=== PATIENT | male | born 1985 | race Caucasian/White ===

== ENCOUNTER 2020-12-14 16:58 | Emergency (ER) | payer OTHER, SELFPAY ==
--- NOTE | 2020-12-14 17:14 | ED.BACK ---
HPI - Back Pain/Injury General Chief Complaint: Back Pain/Injury Stated Complaint: Middle back pain Source: patient and RN notes reviewed Limitations: no limitations History of Present Illness HPI Narrative: This is a 34-year-old male that presented to urgent care with complaints of mid to lower back pain. According to patient he was lifting something at work that was approximately 40 pounds when he injured his lower back pain to the left side residual of his back. Patient has full range of motion with pain, tenderness to his left side in mid back. Patient has sensation in all extremities , able to touch his toes , leg lift negative and equal strength bilateral in upper and lower extremities patient was instructed to follow-up primary care physician if the situation does not improve due to possible neurological damage. MD elicited complaint: back pain and back injury Related Data Home Medications Medication Instructions Recorded Confirmed sertraline 100 mg PO DAILY 12/14/20 12/14/20 Allergies Allergy/AdvReac Type Severity Reaction Status Date / Time metaxalone Allergy Severe anaphylaxis Verified 12/14/20 17:25 methocarbamol Allergy Severe anaphylaxis Verified 12/14/20 17:25 turkey Allergy Severe THROAT Verified 12/14/20 17:25 SWELLING Review of Systems Review of Systems: Narrative: A 14 organ system Review of Systems was performed and pertinent positives included in the HPI, otherwise remaining ROS is negative. [facility] Family History Family History Father Family history of malignant neoplasm Family history of emphysema Family history of heart disease in male family member before age 55 Sibling Patient's sister is in good health Patient's brother is in good health Family history of sudden infant syndrome Mother Family history of malignant neoplasm of breast in first degree relative Family history of lupus erythematosus Social History Social History Smoking status: Former smoker Smoking end date: 07/22/11 Alcohol intake: current Gender identity (if verbalized by the patient): Male Exam Narrative: Exam Narrative: GENERAL: This is a well-nourished, well-developed patient, in no apparent distress. HEAD: normocephalic, atraumatic. EYES: PERRL. Sclera clear/white. Vision is grossly intact. EARS: External ears normal, auditory canals clear and without drainage, TMs normal without perforation. Hearing grossly intact. NOSE: External nose normal with no obvious nasal discharge, nares without redness, no rhinorrhea. THROAT: Mucous membranes moist, posterior pharynx clear. NECK: Neck supple, non-tender without lymphadenopathy, masses or thyromegaly. CARDIOVASCULAR: Regular rate and rhythm without murmurs, gallops, or rubs. RESPIRATORY: Clear to auscultation. Breath sounds equal bilaterally. No wheezes, rales, or rhonchi. GASTROINTESTINAL: Abdomen soft, non-tender, nondistended. Bowel sounds are active. No hepato-splenomegaly, or palpable masses. No guarding. SKIN: warm, intact with no suspicious lesions or rash, good texture and turgor. NEURO: awake, alert, and oriented to person, place and time. There were no obvious focal neurologic abnormalities. Steady gait EXTREMITIES: Normal range of motion with pain. No edema. No calf tenderness. Lower left side of his back and mid insulation board back tender with palpation BACK: Nontender without deformity or crepitance. No flank tenderness. Course Course Emergency Course: Discharged home with Flexeril instructed to use ibuprofen and Tylenol alternation for inflammation and pain Vital Signs Vital signs: Vital Signs Temperature 98.6 F 12/14/20 17:16 Pulse Rate 73 12/14/20 17:16 Respiratory Rate 16 12/14/20 17:16 Blood Pressure 141/96 H 12/14/20 17:16 Pulse Oximetry 100 12/14/20 17:16 Temperature 98.6 F 12/14/20 17:16 Pulse R
[2020-12-14 17:16] VITALS: BP 141/96; PULSE 73; RESP 16; TEMP 37; O2SAT 100
== END 2020-12-14 17:45 | disposition home or self-care (01) ==
PROVIDERS: Emergency Provider Nurse Practitioner
DX: S39.012A Strain of muscle, fascia and tendon of lower back, initial encounter (principal); X50.0XXA Overexertion from strenuous movement or load, initial encounter; Y99.0 Civilian activity done for income or pay; Z87.891 Personal history of nicotine dependence
CPT/HCPCS: 99213; G0463